=== PATIENT | male | born 1950 | race Caucasian/White ===

== ENCOUNTER 2020-04-16 12:17 | Inpatient (IN) ==
[2020-04-16] MEDS ORDERED: *HR* Propofol 200 MG/20 ML VIAL IVP ONE (12:34)
[2020-04-16] MEDS ORDERED: *HR* Midazolam HCl 2 MG/2 ML VIAL ONE (12:34)
[2020-04-16] MEDS ORDERED: *HR* FentaNYL (PF) 100 MCG/2 ML VIAL ONE (12:34)
[2020-04-16] MEDS ORDERED: Dexamethasone 4 MG/ML VIAL ONE (12:36)
[2020-04-16] MEDS ORDERED: Ondansetron 4 MG/2 ML VIAL ONE (12:36)
[2020-04-16] MEDS ORDERED: Lidocaine -MPF 2% 2 ML VIAL ONE (12:36)
[2020-04-16] MEDS ORDERED: *HR* Succinylcholine 200 MG/10 ML VIAL IVP ONE (12:36)
[2020-04-16] MEDS ORDERED: Ethanol\\Acetic Acid\\Na Ace\\Ben 1,000 ML IRRIG.SOLN IR ONE (12:58)
[2020-04-16] MEDS ORDERED: Vancomycin 1,000 MG VIAL ONE (12:58)
[2020-04-16] MEDS ORDERED: Acetaminophen IV 1,000 MG/100 ML BAG IVPB ONE (13:12)
[2020-04-16] MEDS ORDERED: Famotidine 20 MG/2 ML VIAL IVP ONE (13:12)
[2020-04-16] MEDS ORDERED: Ropivacaine/PF 0.5% 30 ML VIAL ONE (13:12)
[2020-04-16] MEDS ORDERED: ROPIVACAINE/PF/NS 0.25% 1 EACH SYRINGE INTRAART ONE (13:12)
[2020-04-16] MEDS ORDERED: Ringers Solution, Lactated 1,000 ML IVC SCH ×2 (13:15→17:17)
[2020-04-16] MEDS ORDERED: Ondansetron 4 MG/2 ML VIAL IVP ONE (13:18)
[2020-04-16] MEDS ORDERED: *HR* OxyCODONE Immed Rel 5 MG TABLET PO PRN ×2 (13:18→17:17)
[2020-04-16] MEDS ORDERED: CeFAZolin Syr 2,000MG/20 ML 2,000 MG/20 ML SYRINGE IVPB ONE (13:28)
[2020-04-16] MEDS ORDERED: EPHEDrine 50 MG/ML VIAL ONE (14:18)
[2020-04-16] MEDS ORDERED: Sennosides 8.6 MG TABLET PO PRN (17:17)
[2020-04-16] MEDS ORDERED: Celecoxib 100 MG CAPSULE PO ONE (17:17)
[2020-04-16] MEDS ORDERED: Dextrose Gel 15 GM/37.5 ML TUBE PO PRN ×2 (17:17)
[2020-04-16] MEDS ORDERED: Insulin LISPRO 300 UNITS/3 ML VIAL SQ SCH ×2 (17:17→21:00)
[2020-04-16] MEDS ORDERED: *HR* Dextrose 50 % in Water (Vial) 50 ML VIAL IVP PRN (17:17)
[2020-04-16] MEDS ORDERED: Naloxone 0.4 MG/ML INJ IVP PRN (17:17)
[2020-04-16] MEDS ORDERED: *HR* OxyCODONE/APAP 5/325 TABLET PO PRN (17:17)
[2020-04-16] MEDS ORDERED: Ondansetron 4 MG/2 ML VIAL IVP PRN (17:17)
[2020-04-16] MEDS ORDERED: D5% in Water 1,000 ML IVC PRN (17:17)
[2020-04-16] MEDS ORDERED: MOM Conc 10 ML UD.LIQ PO PRN (17:17)
[2020-04-16 17:36] LABS: Hematocrit 39.7 % (37.5-50.1); Hemoglobin 13.5 g/dL (12.9-16.9)
[2020-04-16] MEDS ORDERED: *HR* Enoxaparin 30 MG/0.3 ML SYRINGE SQ SCH ×2 (18:00)
[2020-04-16 19:17] VITALS: BP 112/81
[2020-04-16] MEDS ORDERED: CeFAZolin 2 GM/120 ML BAG IVPB SCH (21:00)
[2020-04-17] MEDS ORDERED: BuPROPion SR (12 HR) 100 MG TABLET PO SCH (09:00)
[2020-04-17] MEDS ORDERED: FLUoxetine 20 MG CAPSULE PO SCH (09:00)
[2020-04-17] MEDS ORDERED: Folic Acid 1 MG TABLET PO SCH (09:00)
[2020-04-17] MEDS ORDERED: predniSONE 5 MG TABLET PO SCH (09:00)
== END 2020-04-16 20:50 | disposition home or self-care (01) | DRG 483 ==
LOC: SAMDAY 12:17 → 3ANU 16:28
PROVIDERS: ADMIT Orthopaedic Surgery; ATTEND Orthopaedic Surgery